=== PATIENT | male | born 1945 ===

== ENCOUNTER → 2018-08-25 21:15 | Outpatient (REF) | payer MEDICARE, SELFPAY ==
[2018-08-25 22:03] LABS: Alanine Aminotransferase 45 IU/L (21-72); Albumin 4.6 g/dL (3.5-5.0); Albumin Globulin Ratio 1.6 (1.0-2.8); Alkaline Phosphatase 98 U/L (38-126); Aspartate Aminotransferase 47 IU/L (17-59); BUN Creatinine Ratio 31.3 (6-22); Bilirubin Total 1.2 mg/dL (0.2-1.3); Blood Urea Nitrogen 25 mg/dL (9-20); Calcium 9.6 mg/dL (8.4-10.2); Carbon Dioxide 29 mmol/L (22-32); Chloride 102 mmol/L (98-107); Estimated Glomerular Filt Rate > 60.0 mL/min (>60); Globulin 2.9 g/dL (1.7-4.1); Glucose 88 mg/dL (80-110); HEMOLYSIS < 15 (0-50); Potassium 4.5 mmol/L (3.4-5.1); Sodium 142 mmol/L (137-145); Total Protein 7.5 g/dL (6.3-8.2)
[2018-08-25 22:10] LABS: Add Manual Diff / Slide Review SLIDE REVIEW; Basophils Percent Auto 0.6 % (0-2); Eosinophils Percent Auto 0.9 % (2-4); Hematocrit 45.4 % (41-53); Hemoglobin 15.6 g/dL (13.5-17.5); Lymphocytes Percent Auto 23.6 % (25-40); Mean Corpuscular HGB Conc 34.3 % (30-36); Mean Corpuscular Hemoglobin 32.7 PG (26-34); Mean Corpuscular Volume 95.3 fL (80-100); Monocytes Percent Auto 9.7 % (3-14); Neutrophils Absolute Auto 2800 /uL (3000-5900); Neutrophils Percent Auto 65.2 % (50-75); Platelet Count 119 X10^3/uL (150-400); Red Blood Cell Count 4.76 X10^6/uL (4.5-5.9); Red Cell Distribution Width 13.1 % (11.6-14.8); White Blood Cell Count 4.3 X10^3/uL (4.5-11.0)
[2018-08-25 22:11] LABS: Platelet Estimate Decreased on smear; RBC Morphology Normal Morphology
[2018-08-25 23:31] LABS: Vitamin D 25 Hydroxy (D3) 89.9 ng/mL (30.0-100.0)
== END ==
LOC: LAB 21:15
PROVIDERS: Visit Provider Family Medicine
DX: I10 Essential (primary) hypertension (principal); M54.5 Low back pain; R05 Cough; R90.81 Abnormal echoencephalogram; E55.9 Vitamin D deficiency, unspecified
CPT/HCPCS: 80053; 82306; 85025

== ENCOUNTER → 2018-09-21 22:56 | Outpatient (REF) | payer MEDICARE, SELFPAY ==
[2018-09-21 23:00] LABS: Bacteria Urine None Seen; RBC Urine None Seen (0-5/HPF); WBC Urine None Seen (0-5/HPF)
[2018-09-21 23:34] LABS: Appearance Urine UA CLEAR; Bilirubin Urine UA NEGATIVE (NEGATIVE); Color Urine UA YELLOW; Glucose Urine UA NEGATIVE (Normal); Ketones Urine UA NEGATIVE (NEGATIVE); Leukocyte Esterase Urine UA NEGATIVE (NEGATIVE); Nitrite Urine UA NEGATIVE (Negative); Occult Blood Urine UA NEGATIVE (Negative); Protein Urine UA NEGATIVE (Negative); Urobilinogen Urine UA 0.2 E.U./dL (0.2)
[2018-09-21 23:45] LABS: Culture Indicated Urine Cult Not Indicated; Urine Comments Microscopic Normal
[2018-09-21 23:48] LABS: Hemoglobin A1C% w Est Avg Glu 5.1 % (4.0-6.0)
[2018-09-21 23:51] LABS: Basophils Percent Auto 0.7 % (0-2); Eosinophils Percent Auto 1.8 % (2-4); Hematocrit 46.4 % (41-53); Lymphocytes Percent Auto 20.4 % (25-40); Mean Corpuscular HGB Conc 34.4 % (30-36); Mean Corpuscular Hemoglobin 32.4 PG (26-34); Neutrophils Absolute Auto 3300 /uL (1500-7000); Neutrophils Percent Auto 67.1 % (50-75); Platelet Count 131 X10^3/uL (150-400); Red Blood Cell Count 4.94 X10^6/uL (4.5-5.9); Red Cell Distribution Width 13.4 % (11.6-14.8); White Blood Cell Count 4.9 X10^3/uL (4.5-11.0)
[2018-09-21 23:53] LABS: Add Manual Diff / Slide Review SLIDE REVIEW
[2018-09-22 00:47] LABS: Alanine Aminotransferase 52 IU/L (21-72); Albumin 4.7 g/dL (3.5-5.0); Albumin Globulin Ratio 1.6 (1.0-2.8); Alkaline Phosphatase 112 U/L (38-126); Aspartate Aminotransferase 49 IU/L (17-59); Bilirubin Total 1.3 mg/dL (0.2-1.3); Blood Urea Nitrogen 24 mg/dL (9-20); Calcium 9.6 mg/dL (8.4-10.2); Carbon Dioxide 30 mmol/L (22-32); Chloride 100 mmol/L (98-107); Cholesterol 193 mg/dL (140-199); Estimated Glomerular Filt Rate > 60.0 mL/min (>60); Glucose 77 mg/dL (80-110); HDL Cholesterol 94 mg/dL (40-60); HEMOLYSIS < 15 (0-50); LDL Cholesterol Calculated 83 mg/dL (<100); Potassium 4.2 mmol/L (3.4-5.1); Sodium 142 mmol/L (137-145); Total Protein 7.7 g/dL (6.3-8.2); Triglycerides 82 mg/dL (35-150)
[2018-09-22 01:23] LABS: RBC Morphology Normal Morphology
== END ==
LOC: LAB 22:56
PROVIDERS: Visit Provider Family Medicine
DX: I10 Essential (primary) hypertension (principal); M54.5 Low back pain; R05 Cough
CPT/HCPCS: 36415; 80053; 80061; 81001; 82728; 83036; 84443; 85025